=== PATIENT | female | born 1995 | race African-American/Black ===

== ENCOUNTER 2016-09-01 13:10 | Emergency (ER) | payer OTHER ==
[2016-09-01 13:14] VITALS: BP 145/79; BMI 33.6
--- NOTE | 2016-09-01 13:33 | DR.HTN ---
HPI - Time Seen Time seen: 13:24 - Primary Care Physician Primary Care Physician: ARTHUR LEP - Complaints Chief Complaint Doctors Comments: Patient does not know name of medication. Has [facility] but is trying to change insurance carrier so she can get referred to neurologist for headache management Chief Complaint:: PT. C/O HIGH BLOOD PRESSURE AND HEADACHE. PT. HAS BEEN OUT OF HER BLOOD PRESSURE MEDICATION FOR A MONTH & A HALF,UNSURE OF NAME OF MEDICATION SHE WAS TAKING.. Headache is frontal, throbbing, sponstaneous and no aura. - Source History Provided: Patient - Mode of Arrival Mode of Arrival: Ambulatory - Timing Onset of Chief Complaint: 08/30/16 PMH - PMH Past Medical History: Yes Past Medical History: Hypertension Past Surgical History: Yes Surgical History: - Family History History of Family Medical Conditions: Yes Family Medical History: Diabetes Mellitus, Cancer, Hypertension - Social History Does patient currently use any type of tobacco product: Yes Have you used tobacco products in the last 12 months: Yes Type of Tobacco Use: Cigarettes Does any household member use tobacco: No Alcohol Use: Occasionally Do you use any recreational Drugs:: No Lives With: Family Lives Where: Home - infectious screening In the last 2 months have you had wt loss of >10#?: NO Have you had fever, night sweats or hemotysis?: No Have you traveled outside the country in the last 6 months?: No Isolation: Standard ROS - Review of Systems Constitutional: No Symptoms Reported Eyes: No Symptoms Reported ENTM: No Symptoms Reported Respiratoy: No Symptoms Reported Cardiovascular: No Symptoms Reported Gastrointestinal/Abdominal: No Symptoms Reported Genitourinary: No Symptoms Reported Neurological: No Symptoms Reported Musculoskeletal: No Symptoms Reported Integumentary: No Symptoms Reported Hematologic/Lymphatic: No Symptoms Reported Endocrine: No Symptoms Reported Psychiatric: No Symptoms Reported All Other Systems: Reviewed and Negative PE - Vital Signs Vitals: Temperature 98.2 F Pulse Rate 83 Respiratory Rate 17 Blood Pressure [Left Arm] 148/105 Blood Pressure 145/79 O2 Sat by Pulse Oximetry 100 - General Limitations: No Limitations General Appearance: Alert, In No Apparent Distress - Head Head Exam: Normal Inspection, Atraumatic - Eyes Eye exam: Normal Appearance Pupils: Regular, Round: Bilateral Sclera/Conjunctival: Normal Inspection: Bilateral - ENT ENT Exam: Normal Exam, Normal Oropharynx - Neck Neck Exam: Normal Inspection - Chest Chest Inspection: Normal Inspection - Respiratory Respiratory Exam: Normal Lung Sounds Bilat Respiratory Exam: Bilateral Clear to Auscultation - Cardiovascular Cardiovascular Exam: Regular Rate, Normal Rhythm - Abdominal Exam Abdominal Exam: Normal Inspection, Normal Bowel Sounds Abdominal Tenderness: negative: RUQ, RLQ, LUQ, LLQ, Epigastrium, Suprapubic, Diffuse, Mild, Moderate, Severe, Other - Extremities Extremities Exam: Normal Inspection - Back Back Exam: Normal Inspection - Neurologic Neurological Exam: Alert, Oriented X3, CN II-XII Intact Speech: Fluid Speech Cranial Nerve Exam: EOM Function (II, III, IV, ): Normal, Facial Sensation (V) : Normal Cerebellar Function: Finger to Nose: Normal, Heel to Zuniga: Normal Motor Strength - LUE: 3/5 Motor Strength - RUE: 3/5 Motor Strength - LLE: 3/5 Motor Strength - RLE: 3/5 Upper Motor Neuron Exam: Forrest Neglect: Normal, Pronator Drift: Normal Sensory Exam Upper Extremity: Light Touch: Normal - Psychiatric Psychiatric Exam: Normal Affect - Skin Skin Exam: Warm, Dry, Intact - Diagnosis Discharge Problem: Headache Qualifiers: Headache type: unspecified Headache chronicity pattern: chronic headache Intractability: not intractable Qualified Code(s): R51 - Headache - Discharge Plan Condition: Stable - Follow ups/Referrals Follow ups/Referrals: SEUN MARKS [Primary Care Provider] - 3 days - Instructions
[2016-09-01] MEDS ORDERED: TORADOL 60 MG VIAL ONE (13:34)
[2016-09-01] MEDS ORDERED: TORADOL 60 MG VIAL IM ONE (13:38)
== END 2016-09-01 13:59 | disposition home or self-care (01) ==
LOC: ER 13:16
DX: R51 Headache (principal)
CPT/HCPCS: 96372; 99282; J1885

== ENCOUNTER → 2016-11-12 | Outpatient (CLI) | payer OTHER ==
--- NOTE | 2016-11-13 08:25 | MRI ---
Right knee MRI without contrast Indication: Knee pain Technique: Multi sequence, multiplanar MR images of the right knee were obtained without contrast. R eformatted images in the coronal and sagittal planes were also generated for review. Comparison: None Findings: Bone marrow signal appears normal. No acute fracture, malalignment or suspicious osseous l esion is identified. The articular cartilage of the medial and lateral and patellofemoral compartments appears well maint ained without significant chondral degeneration or full-thickness defect identified. There is no sig nificant joint effusion or Romero's cyst. There is buckling of the lateral meniscal central free edge (sagittal PD image 10, series 601 and ax ial image 24, series 501), compatible with a meniscal flounce. There is also abnormal, linear intras ubstance signal within the posterior horn lateral meniscus, which is predominantly horizontal in con figuration and extends into the root. These findings are only well appreciated on the sagittal PD se quence on images 10-14, series 601. The medial meniscus appears intact. The cruciate ligaments, MCL, major lateral stabilizers of the knee and extensor mechanism appear int act. Impression: Lateral meniscal flounce and suspected nondisplaced, predominantly horizontally oriented tear of the posterior horn lateral meniscus with extension into the posterior root. Reported By:
== END | disposition home or self-care (01) ==
LOC: RAD 12:53
PROVIDERS: ATTEND Nurse Practitioner Family
DX: S86.812A Strain of other muscle(s) and tendon(s) at lower leg level, left leg, initial encounter (principal); X58.XXXA Exposure to other specified factors, initial encounter; M25.562 Pain in left knee
CPT/HCPCS: 73721

== ENCOUNTER → 2016-12-17 | Outpatient (CLI) | payer OTHER ==
--- NOTE | 2016-12-17 11:37 | MRI ---
HISTORY: Low back pain Study: MRI lumbar spine without contrast Comparison: None Technique: Multiplanar multi-sequence MRI of the lumbar spine was obtained. Sagittal T1, sagittal T2 , and stir weighted images, axial T1, and axial T2 images were obtained. Findings: The lumbar spine demonstrates normal alignment with the expected signal characteristics of the bone m arrow. The conus of the cord terminates normally. T12 -- L1: No evidence for compressive disc disease. The neural foramina are patent. The joints are n ormal. L1 -- L2: No evidence for compressive disc disease. The neural foramina are patent. The joints are no rmal. L2 -- L3: No evidence for compressive disc disease. The neural foramina are patent. The joints are no rmal. L3 -- L4: Minimal circumferential disk bulging contributes to minimal lateral recess narrowing bilate rally. The joints are normal. L4 -- L5: Minimal circumferential disk bulging contributes to minimal lateral recess narrowing bilate rally. The joints are normal. L5 -- S1: No evidence for compressive disc disease. The neural foramina are patent. The joints are no rmal. IMPRESSION: As above Reported By:
== END | disposition home or self-care (01) | DRG 552 ==
LOC: RAD 10:31
PROVIDERS: ATTEND Nurse Practitioner Family
DX: M54.5 Low back pain (principal)
CPT/HCPCS: 72148

== ENCOUNTER 2017-01-19 12:00 | Emergency (ER) | payer OTHER ==
[2017-01-19 12:31] VITALS: BMI 39.1
--- NOTE | 2017-01-19 12:54 | DR.GENAD ---
HPI - PCP Primary Care Physician: ryland - Complaint/Symptoms Chief Complaint:: patient stated she started bleeding from her vagina that started friday, and she stated she has had a head cold for 3 days. - Nurses notes reviewed Nurses Notes Review: Yes - Source History Provided: Patient - Mode of Arrival Mode of Arrival: Ambulatory - Timing Onset of Chief Complaint: 01/16/17 Came on: Suddenly - Duration Duration: Constant Duration: Days - Severity Severity: Moderate PMH - PMH Past Medical History: Yes Past Medical History: Hypertension Past Surgical History: Yes Surgical History: - Family History History of Family Medical Conditions: Yes Family Medical History: Diabetes Mellitus, Cancer, Hypertension - Social History Does patient currently use any type of tobacco product: Yes Have you used tobacco products in the last 12 months: Yes Type of Tobacco Use: Cigarettes How many years tobacco product used: 3 Does any household member use tobacco: No Alcohol Use: None Do you use any recreational Drugs:: No Lives With: Family Lives Where: Home - infectious screening In the last 2 months have you had wt loss of >10#?: NO Have you had fever, night sweats or hemotysis?: No Have you traveled outside the country in the last 6 months?: No Isolation: Standard ROS - Review of Systems Constitutional: No Symptoms Reported Eyes: No Symptoms Reported ENTM: Nose Discharge, Nose Congestion Respiratoy: No Symptoms Reported Cardiovascular: No Symptoms Reported Gastrointestinal/Abdominal: No Symptoms Reported Genitourinary: Bleeding (VAGINAL BLEEDING.) Neurological: No Symptoms Reported Musculoskeletal: No Symptoms Reported Integumentary: No Symptoms Reported Hematologic/Lymphatic: No Symptoms Reported Endocrine: No Symptoms Reported All Other Systems: Reviewed and Negative PE - Vital Signs Vitals: Temperature 98.0 F Pulse Rate [Standing] 75 Pulse Rate [Sitting] 69 Pulse Rate [Lying] 76 Pulse Rate 81 Respiratory Rate 16 Blood Pressure [Left Arm] 148/105 Blood Pressure [Standing] 158/98 Blood Pressure [Sitting] 147/82 Blood Pressure [Lying] 149/88 Blood Pressure 144/93 O2 Sat by Pulse Oximetry 99 - General Limitations: No Limitations General Appearance: Alert - Head Head Exam: Normal Inspection - Eyes Eye exam: Normal Appearance - ENT ENT Exam: Normal External Ear Exam External Ear Exam: Normal External Inspection TM/Canal Exam: Bilateral Normal Nose Exam: Normal Nose Exam Mouth Exam: Normal Inspection Throat Exam: Normal Inspection - Neck Neck Exam: Normal Inspection - Chest Chest Inspection: Symmetric Chest Wall Rise - Respiratory Respiratory Exam: Normal Lung Sounds Bilat Respiratory Exam: Lower Clear to Auscultation - Cardiovascular Cardiovascular Exam: Regular Rate, Normal Rhythm, Normal Heart Sounds - Abdominal Exam Abdominal Exam: Normal Bowel Sounds, Soft, Tenderness Abdominal Tenderness: RLQ, LLQ, Suprapubic - Extremities Extremities Exam: Normal Inspection - Back Back Exam: Normal Inspection - Neurologic Neurological Exam: Alert, Oriented X3 - Psychiatric Psychiatric Exam: Anxious - Skin Skin Exam: Normal Color MDM - Differential Diagnosis Differential Diagnosis: ABNORMAL UTERINE BLEEDING, DYSMENORRHES, MENORRHAGIA., UTI, PID, Course - Treatment Treatment: SEE ORDERS. - Education/Counseling Education/Counseling: Patient, Education Educated On: Diagnosis, Needs for Follow Up ROR - Labs Reviewed Laboratory Results Reviewed?: Yes Result Diagrams: 01/19/17 13:15 01/19/17 13:15 Laboratory: WBC 7.8 X10^3/uL (3.6-10.0) 01/19/17 13:15 RBC 4.20 X10^6/uL (3.5-5.4) 01/19/17 13:15 Hgb 11.8 g/dL (12.0-16.0) L 01/19/17 13:15 Hct 35.9 % (36.0-47.0) L 01/19/17 13:15 MCV 85.4 fL (80.0-100.0) 01/19/17 13:15 MCH 28.0 pg (27.0-34.0) 01/19/17 13:15 MCHC 32.8 g/dL (33.0-35.0) L 01/19/17 13:15 RDW 14.3 % (11.6-16.5) 01/19/17 13:15 Plt Count 294 X10^3/uL (150.0-450.0) 01/19/17 13:15 MPV 9.1 fL (7.4-11.0) 01/19/17 13:15 Neut % 60.7 % (42.0-75.0) 01/19/17 13:15 Lymph % 31.1 % (21.0-51.0) 01/19/17 13:15 [place] % 5.6 % (0.0-13.0) 01/19/17 13:15 Eos % 2.2 % (0.9-2.9) 01/19/17 13:15 Baso % 0.4 % (0.2-1.0) 01/19/17 13:15 Neut # 4.7 x10^3/uL (2.2-4.8) 01/19/17 13:15 Lymph # 2.4 X10^3/uL (1.3-2.9) 01/19/17 13:15 [place] # 0.4 x10^3/uL (0.3-0.8) 01/19/17 13:15 Eos # 0.2 x10^3/uL (0.0-0.2) 01/19/17 13:15 Baso # 0.0 X10^3/uL (0.0-0.1) 01/19/17 13:15 Absolute Nucleated RBC 0.0 /100WBC 01/19/17 13:15 INR Target Range - 01/19/17 13:15 INR 1.15 (0.8-1.3) 01/19/17 13:15 PTT 32.5 SECONDS (22.9-36.5) 01/19/17 13:15 PTT Comment - 01/19/17 13:15 Sodium 140 mmol/L (136-145) 01/19/17 13:15 Corrected Sodium TNP 01/19/17 13:15 Potassium 3.7 mmol/L (3.5-5.1) 01/19/17 13:15 Chloride 106 mmol/L (98-107) 01/19/17 13:15 Carbon Dioxide 26.9 mmol/L (21-32) 01/19/17 13:15 BUN 9 mg/dL (7-18) 01/19/17 13:15 Creatinine 0.89 mg/dL (0.55-1.02) 01/19/17 13:15 Est GFR (MDRD) Af Amer > 60 (>60) 01/19/17 13:15 Est GFR (MDRD) Non-Af > 60 (>60) 01/19/17 13:15 Glucose 88 mg/dL (65-99) 01/19/17 13:15 Calcium 9.4 mg/dL (8.5-10.1) 01/19/17 13:15 Corrected Calcium TNP 01/19/17 13:15 Total Bilirubin 0.20 mg/dL (0.2-1.0) 01/19/17 13:15 AST 19 Units/L (15-37) 01/19/17 13:15 ALT 30 Units/L (12-78) 01/19/17 13:15 Alkaline Phosphatase 90 Units/L (46-116) 01/19/17 13:15 Total Protein 8.5 g/dL (6.4-8.2) H 01/19/17 13:15 Albumin 4.0 g/dL (3.4-5.0) 01/19/17 13:15 Globulin 4.5 g/dL (2.5-4.5) 01/19/17 13:15 Albumin/Globulin Ratio 0.9 Ratio (1.1-2.1) L 01/19/17 13:15 HCG, Qual Negative <10 mIU/mL 01/19/17 13:15 Specimen Type Clean catch urine 01/19/17 15:52 Urine Color Red (YELLOW) 01/19/17 15:52 Urine Appearance Turbid (CLEAR) 01/19/17 15:52 Urine pH 6.0 (5.0 - 8.0) 01/19/17 15:52 Ur Specific [place] 1.015 (1.000-1.030) 01/19/17 15:52 Urine Protein 2+ (NEGATIVE) 01/19/17 15:52 Urine Glucose (UA) Negative (NEGATIVE) 01/19/17 15:52 Urine Ketones Negative (NEGATIVE) 01/19/17 15:52 Urine Occult Blood 5+ (NEGATIVE) 01/19/17 15:52 Urine Nitrite Negative (NEGATIVE) 01/19/17 15:52 Urine Bilirubin Negative (NEGATIVE) 01/19/17 15:52 Urine Urobilinogen Normal (NORMAL) 01/19/17 15:52 Ur Leukocyte Esterase 1+ (NEGATIVE) 01/19/17 15:52 Urine RBC Tntc /HPF (NEGATIVE) 01/19/17 15:52 Urine WBC 0 - 4 /HPF (NEGATIVE) 01/19/17 15:52 Ur Squamous Epith Cells Rare /HPF (NEGATIVE) 01/19/17 15:52 Amorphous Sediment Trace /HPF (NEGATIVE) 01/19/17 15:52 Urine Bacteria Trace /HPF (NEGATIVE) 01/19/17 15:52 Urine Mucus Moderate /HPF (NEGATIVE) 01/19/17 15:52 Ur Culture Indicated? No/not indicated 01/19/17 15:52 Ur C. trach DNA (PCR) Not detected (NOT DETECT) 01/19/17 15:52 U N.gonorrhoeae DNA PCR Not detected (NOT DETECT) 01/19/17 15:52 - Diagnosis Discharge Problem: Menometrorrhagia, Dysuria, Abnormal uterine bleeding Menorrhagia Qualifiers: Menorrahagia type: with irregular cycle Qualified Code(s): N92.1 - Excessive and frequent menstruation with irregular cycle - Discharge Plan Disposition: HOME, SELF-CARE Condition: Stable - Follow ups/Referrals Follow ups/Referrals: SEUN MARKS [Primary Care Provider] - 01/20/17 - Instructions Instructions: Abdominal Pain, Adult, [id number], Abnormal Uterine Bleeding, [id number] Additional Instructions: RETURN TO ED IF WORSE.
[2017-01-19 13:30] LABS: BASOPHILS % (AUTO) 0.4 % (0.2-1.0); EOSINOPHILS # (AUTO) 0.2 x10^3/uL (0.0-0.2); EOSINOPHILS % (AUTO) 2.2 % (0.9-2.9); HEMATOCRIT 35.9 % (36.0-47.0); HEMOGLOBIN 11.8 g/dL (12.0-16.0); LYMPHOCYTES # (AUTO) 2.4 X10^3/uL (1.3-2.9); LYMPHOCYTES % (AUTO) 31.1 % (21.0-51.0); MEAN CORPUSCULAR HGB CONC 32.8 g/dL (33.0-35.0); MEAN CORPUSCULAR VOLUME 85.4 fL (80.0-100.0); MEAN PLATELET VOLUME 9.1 fL (7.4-11.0); MONOCYTES # (AUTO) 0.4 x10^3/uL (0.3-0.8); MONOCYTES % (AUTO) 5.6 % (0.0-13.0); NEUTROPHILS # (AUTO) 4.7 x10^3/uL (2.2-4.8); NEUTROPHILS % (AUTO) 60.7 % (42.0-75.0); PLATELET COUNT 294 X10^3/uL (150.0-450.0); RED CELL DISTRIBUTION WIDTH 14.3 % (11.6-16.5); WHITE BLOOD COUNT 7.8 X10^3/uL (3.6-10.0)
[2017-01-19 13:46] LABS: ALANINE AMINOTRANSFERASE 30 Units/L (12-78); ALKALINE PHOSPHATASE 90 Units/L (46-116); ASPARTATE AMINO TRANSFERASE 19 Units/L (15-37); BLOOD UREA NITROGEN 9 mg/dL (7-18); CALCIUM 9.4 mg/dL (8.5-10.1); CARBON DIOXIDE 26.9 mmol/L (21-32); CHLORIDE 106 mmol/L (98-107); CREATININE 0.89 mg/dL (0.55-1.02); SODIUM 140 mmol/L (136-145); TOTAL PROTEIN 8.5 g/dL (6.4-8.2); eGFR BLACK RACES > 60 (>60); eGFR NON BLACK RACES > 60 (>60)
[2017-01-19 13:51] LABS: SERUM PREGNANCY TEST, QUAL NEGATIVE <10 mIU/mL
[2017-01-19 16:03] VITALS: BP 149/88
[2017-01-19 16:19] LABS: BILIRUBIN,URINE NEGATIVE (NEGATIVE); BLOOD/HEMOGLOBIN,URINE 5+ (NEGATIVE); GLUCOSE, URINE NEGATIVE (NEGATIVE); KETONES,URINE NEGATIVE (NEGATIVE); LEUKOCYTE ESTERASE ,URINE 1+ (NEGATIVE); NITRITES,URINE NEGATIVE (NEGATIVE); PROTEIN,URINE 2+ (NEGATIVE); UROBILINOGEN,URINE NORMAL (NORMAL)
[2017-01-19 16:35] LABS: APPEARANCE,URINE TURBID (CLEAR); COLOR,URINE RED (YELLOW)
[2017-01-19 16:44] LABS: BACTERIA,URINE TRACE /HPF (NEGATIVE); RBC,URINE TNTC /HPF (NEGATIVE); SQUAMOUS EPITHELIAL CELL,UR RARE /HPF (NEGATIVE)
[2017-01-19 16:45] LABS: AMORPHOUS SEDIMENT,UR TRACE /HPF (NEGATIVE); MUCUS,URINE MODERATE /HPF (NEGATIVE)
[2017-01-19 18:40] LABS: CHLAMYDIA TRACH URINE NOT DETECTED (NOT DETECT)
== END 2017-01-19 16:05 | disposition home or self-care (01) ==
LOC: ER 12:33
DX: N92.1 Excessive and frequent menstruation with irregular cycle (principal); R30.0 Dysuria; N93.9 Abnormal uterine and vaginal bleeding, unspecified
CPT/HCPCS: 36415; 80053; 81001; 84703; 85025; 85610; 85730; 87491; 87591; 99282

== ENCOUNTER 2017-04-14 14:11 | Emergency (ER) | payer OTHER ==
[2017-04-14 14:20] VITALS: BP 145/70; BMI 39.1
[2017-04-14] MEDS ORDERED: TORADOL 60 MG VIAL IM ONE (14:53)
[2017-04-14] MEDS ORDERED: ZOFRAN INJ 4 MG VIAL IM ONE (14:53)
[2017-04-14] MEDS ORDERED: FUL-GLO STRIP ONE (14:55)
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
[2017-04-14] MEDS ORDERED: TORADOL 60 MG VIAL ONE (15:03)
[2017-04-14] MEDS ORDERED: ZOFRAN INJ 4 MG VIAL ONE (15:03)
--- NOTE | 2017-04-14 15:12 | RAD ---
History: Right wrist pain. Study: Right wrist three views. Comparison: None. Findings: There is no evidence acute fracture or dislocation. Distal radius and ulna appear intact. T he carpal bones appear intact. There is no significant soft tissue abnormality identified. IMPRESSION: 1. No evidence of acute osseous injury to the right wrist. Reported By:
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
== END 2017-04-14 15:55 | disposition home or self-care (01) ==
LOC: ER 14:13
DX: S63.501A Unspecified sprain of right wrist, initial encounter (principal); S60.211A Contusion of right wrist, initial encounter; S00.83XA Contusion of other part of head, initial encounter; H10.31 Unspecified acute conjunctivitis, right eye; R51 Headache; H57.11 Ocular pain, right eye; Y04.0XXA Assault by unarmed brawl or fight, initial encounter; Y92.9 Unspecified place or not applicable
CPT/HCPCS: 70450; 70486; 73100; 96372; 99282; 99283; J1885; J2405

== ENCOUNTER 2017-05-16 15:29 | Emergency (ER) | payer OTHER ==
[2017-05-16 15:34] VITALS: BP 135/73; BMI 38.3
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
== END 2017-05-16 16:10 | disposition home or self-care (01) ==
LOC: ER 15:40
DX: S63.501A Unspecified sprain of right wrist, initial encounter (principal); Y04.0XXA Assault by unarmed brawl or fight, initial encounter; Y92.9 Unspecified place or not applicable
CPT/HCPCS: 29260; 99281; 99282